=== PATIENT | male | born 1960 | race Caucasian/White ===

== ENCOUNTER 2023-11-27 07:35 | Emergency (ER) | payer OTHER ==
[~2023-11-27] VITALS: Ht 177.8 cm; Wt 92.5 kg
[~2023-11-27 07:35] MED LIST: HYDR-3917 PO; TAMS0.4C96 PO
[2023-11-27 07:45] VITALS: BP_SYST 192; PULSE 68; RESP 14; TEMP 97.2; O2SAT 98
[2023-11-27 08:10] LABS: BILIRUBIN,URINE NEGATIVE (NEGATIVE); BLOOD, URINE NEGATIVE (NEGATIVE); CLARITY/URINE CLEAR (CLEAR); COLOR,URINE YELLOW (YELLOW); GLUCOSE,URINE NEGATIVE (NEGATIVE); KETONES,URINE NEGATIVE (NEGATIVE); LEUKOCYTE ESTERASE ,URINE NEGATIVE (NEGATIVE); NITRITE, URINE NEGATIVE (NEGATIVE); PROTEIN URINE NEGATIVE (NEGATIVE); UROBILINOGEN,URINE 0.2 (0.2-1.0)
[2023-11-27 08:15] LABS: BASOPHILS # (AUTO) 0.1 K/uL (0.0-0.2); EOSINOPHILS # (AUTO) 0.1 K/uL (0.0-0.4); EOSINOPHILS % (AUTO) 1.4 % (0.0-4.0); HEMATOCRIT 41.4 % (36-54); LYMPHOCYTES # (AUTO) 1.1 K/uL (1.0-5.5); LYMPHOCYTES % (AUTO) 18.4 % (20.5-51.5); MEAN CORPUSCULAR HEMOGLOBIN 31 pg (27-31); MEAN CORPUSCULAR HGB CONC 34 % (32-36); MEAN CORPUSCULAR VOLUME 92 fL (79.0-98.0); MONOCYTES # (AUTO) 0.4 K/uL (0.0-1.0); NEUTROPHILS # (AUTO) 4.4 K/uL (1.8-7.7); NEUTROPHILS % (AUTO) 73.2 % (40.0-70.0); PLATELET COUNT (AUTO) 216 K/uL (130-430); RED BLOOD CELL COUNT(AUTO) 4.49 MIL/uL (4.2-6.2); RED CELL DISTRIBUTION WIDTH 13.9 % (9.0-15.0)
[2023-11-27 08:21] LABS: CALCIUM 8.2 mg/dL (8.4-11.0); CREATININE 1.11 mg/dL (0.55-1.30); POTASSIUM 3.9 mmol/L (3.5-5.1)
[2023-11-27] MEDS: KETOROLAC TROMETHAMINE 30 MG VIAL IM ONE (09:58)
[2023-11-27] MEDS ORDERED: DICY-14 PO (11:20)
[2023-11-27 13:19] VITALS: BP_SYST 136; PULSE 78; RESP 18; TEMP 98
== END 2023-11-27 11:30 | disposition home or self-care (01) ==
LOC: SED 07:35
DX: K80.20 Calculus of gallbladder without cholecystitis without obstruction (principal); Z88.0 Allergy status to penicillin; Z79.899 Other long term (current) drug therapy
CPT/HCPCS: 99285; 74176; 76700; 80048; 81001; 85025; 36415; 96372; J1885; 81003

== ENCOUNTER 2024-03-23 08:30 | Day surgery (SDC) | payer OTHER ==
[~2024-03-23] VITALS: Ht 177.8 cm; Wt 87.8 kg
[2024-03-23] MEDS: CEFAZOLIN SOD 2 GM in D5W 50 ML IV ONE (07:00)
[~2024-03-23 08:30] MED LIST changes: +DICY-14 PO
[2024-03-23] MEDS: fentaNYL CITRATE/PF 100 MCG/2 ML AMP ONE ×2 (09:40→11:31)
[2024-03-23] MEDS: MIDAZOLAM HCL 2 MG/2 ML VIAL (VERSED) ONE (09:41)
[2024-03-23] MEDS ORDERED: HYDROmorphone 1 MG/ML INJ. CARTRIDGE IVP PRN (11:00)
[2024-03-23] MEDS ORDERED: ONDANSETRON HCL 4 MG/2 ML VIAL IVP PRN (11:00)
[2024-03-23] MEDS ORDERED: NALOXONE HCL 0.4 MG/ML AMP (NARCAN) IVP PRN (11:00)
[2024-03-23] MEDS ORDERED: DEXAMETHASONE SOD PHOSPHATE 4 MG/ML VIAL ONE (12:47)
[2024-03-23] MEDS: HYDROmorphone 1 MG/ML INJ. CARTRIDGE ONE ×4 (12:53→14:45)
[2024-03-23] MEDS: HYDROmorphone 1 MG/ML INJ. CARTRIDGE IVP PRN ×2 (12:55→14:45)
[2024-03-23] MEDS: hydrALAZINE HCL 20 MG/ML VIAL IV PRN (14:25)
[2024-03-23] MEDS: hydrALAZINE HCL 20 MG/ML VIAL ONE ×2 (14:26→16:27)
[2024-03-23] MEDS ORDERED: ONDANSETRON HCL 4 MG/2 ML VIAL IM PRN (15:45)
[2024-03-23 17:14] VITALS: BP_SYST 170; PULSE 99; RESP 16; TEMP 98
[2024-03-23] MEDS: LR 1,000 ML IV SCH (18:10)
[2024-03-23 18:49] VITALS: O2SAT 96
[2024-03-23 20:00] VITALS: BP_SYST 154; PULSE 91; RESP 18; TEMP 97.5; O2SAT 97
[2024-03-23] MEDS: TAMSULOSIN HCL 0.4 MG CAP PO ONE (20:02)
[2024-03-23] MEDS: HYDROcodone/ACETAMIN 5-325 MG TAB (NORCO/ VICODIN) PO PRN (20:08)
[2024-03-23 23:58] VITALS: BP_SYST 169; PULSE 95; RESP 18; TEMP 97.6; O2SAT 95
[2024-03-24] MEDS: HYDROmorphone 2 MG/ML VIAL IVP PRN (04:41)
[2024-03-24 05:10] VITALS: O2SAT 100
[2024-03-24 08:00] VITALS: BP_SYST 157; PULSE 95; RESP 16; TEMP 98.7; O2SAT 96; O2SAT 99
[2024-03-24 08:19] LABS: ALBUMIN 3.4 g/dL (3.4-4.8); CALCIUM 8.7 mg/dL (8.4-11.0); CREATININE 1.38 mg/dL (0.55-1.30); POTASSIUM 4.7 mmol/L (3.5-5.1); TOTAL BILIRUBIN 0.8 mg/dL (0.0-1.0); TOTAL PROTEIN, SERUM 6.9 g/dL (6.4-8.3)
[2024-03-24 12:52] VITALS: BP_SYST 153; PULSE 96; RESP 17; TEMP 97.8; O2SAT 95
[2024-03-24 13:11] VITALS: BP_SYST 153; PULSE 96; RESP 17; TEMP 97.8; O2SAT 95
[2024-03-24] MEDS ORDERED: KETO60CR2 TP (13:57)
[2024-03-24] MEDS ORDERED: HYDC2.5% TP (13:57)
[2024-03-24] MEDS ORDERED: LIP20 PO (13:57)
[2024-03-24] MEDS ORDERED: ALBMDI INH (13:57)
[2024-03-24] MEDS ORDERED: QUET50TA15 PO (13:57)
[2024-03-24] MEDS ORDERED: HYDR50TA45 PO (13:57)
[2024-03-24] MEDS ORDERED: TRAZ-251 PO (13:57)
[2024-03-24] MEDS ORDERED: CARV25TA55 PO (13:57)
[2024-03-24] MEDS ORDERED: LISI40TA13 PO (13:57)
[2024-03-24] MEDS ORDERED: WELSR100 PO (13:57)
[2024-03-24] MEDS ORDERED: TADA10TA14 PO (13:57)
== END 2024-03-24 14:05 | disposition home or self-care (01) ==
LOC: SDS 08:30 → SMU 08:32 → SDS 03-24 14:05
PROVIDERS: ATTEND Surgery
DX: K80.12 Calculus of gallbladder with acute and chronic cholecystitis without obstruction (principal); K43.2 Incisional hernia without obstruction or gangrene; R10.11 Right upper quadrant pain; I10 Essential (primary) hypertension; E78.5 Hyperlipidemia, unspecified; J44.9 Chronic obstructive pulmonary disease, unspecified; F32.5 Major depressive disorder, single episode, in full remission; F41.9 Anxiety disorder, unspecified; G47.33 Obstructive sleep apnea (adult) (pediatric); F17.210 Nicotine dependence, cigarettes, uncomplicated; Z88.0 Allergy status to penicillin; Z98.84 Bariatric surgery status; Z98.1 Arthrodesis status; Z98.890 Other specified postprocedural states
CPT/HCPCS: 47562; 49593; 80053; 87081; 36415; 88302; 88304; 88305; J3490 ×2; J0690; J1100; J0360; J3465; J2405; J2704; J3010; J1170 ×2; J7060; J7120; J7030; C1727; J2250